=== PATIENT | female | born 1995 | race Caucasian/White ===

== ENCOUNTER 2023-05-08 07:57 | Outpatient (CLI) | payer OTHER, SELFPAY ==
[2023-05-08 19:13] LABS: Cholesterol 170 mg/dL (0-200); HDL Direct 50 mg/dL; Triglycerides 105 mg/dL (<150)
[2023-05-08 19:24] LABS: LDL Cholesterol Direct 76 mg/dL
[2023-05-08 20:17] LABS: Hemoglobin A1C 4.6 % (<5.7)
[2023-05-10 10:48] LABS: DHEA-Sulfate 192 mcg/dL (18-391)
[2023-05-11 05:02] LABS: Insulin Level Total 7.7 uIU/mL (<=18.4)
[2023-05-11 13:34] LABS: FSH 6.8 mIU/mL (***); Progesterone 0.5 ng/mL (***); Prolactin 10.2 ng/mL (***)
[2023-05-12 08:00] LABS: Testosterone Total 47 ng/dL (2-45)
[2023-05-15 22:02] LABS: Free Insulin 4.8 uIU/mL (1.5-14.9)
[2023-05-17 04:57] LABS: Estradiol, Ultrasensitive 38 pg/mL
== END 2023-05-08 07:58 | disposition home or self-care (01) ==
LOC: ANHGOSHLAB 07:59
PROVIDERS: PCP Family Medicine; Visit Provider Obstetrics & Gynecology
DX: L68.0 Hirsutism (principal); R63.5 Abnormal weight gain; Z87.42 Personal history of other diseases of the female genital tract
CPT/HCPCS: 36415; 80061; 82627; 82670; 83001; 83036; 83498; 83525; 83527; 84144; 84146; 84403; 84443

== ENCOUNTER 2023-06-02 08:24 | Outpatient (CLI) | payer OTHER, SELFPAY ==
[2023-06-02 13:32] LABS: Beta HCG Quantitative < 2.39 mIU/ML
== END 2023-06-02 08:25 | disposition home or self-care (01) ==
LOC: ANHGOSHLAB 08:26
PROVIDERS: PCP Family Medicine; Visit Provider Obstetrics & Gynecology
DX: N92.6 Irregular menstruation, unspecified (principal)
CPT/HCPCS: 36415; 84702